=== PATIENT | male | born 1960 | race Caucasian/White ===

== ENCOUNTER → 2022-09-22 08:15 | Outpatient (BNVA) | payer OTHER, SELFPAY | PROVIDERS: Visit Provider Nurse Practitioner Family | DX: R50.9 Fever, unspecified (principal); R39.9 Unspecified symptoms and signs involving the genitourinary system | CPT/HCPCS: 81000; 87077; 87086; 87184 ==

== ENCOUNTER → 2022-10-19 08:27 | Outpatient (BNVA) | payer OTHER, SELFPAY | PROVIDERS: PCP Family Medicine; Visit Provider Family Medicine | DX: C61 Malignant neoplasm of prostate (principal) | CPT/HCPCS: 80053; 80061; 84439; 84443; 85025 ==

== ENCOUNTER → 2022-11-04 11:19 | Outpatient (BNVA) | payer OTHER, SELFPAY | PROVIDERS: PCP Family Medicine; Visit Provider Urology | DX: C61 Malignant neoplasm of prostate (principal) | CPT/HCPCS: 84153 ==

== ENCOUNTER → 2023-05-22 07:12 | Outpatient (BNVA) | payer OTHER, SELFPAY | PROVIDERS: PCP Family Medicine; Visit Provider Podiatrist Foot & Ankle Surgery | DX: M20.21 Hallux rigidus, right foot | CPT/HCPCS: 73630; 99203 ==

== ENCOUNTER → 2023-08-18 08:28 | Outpatient (BNVA) | payer OTHER, SELFPAY | PROVIDERS: Referring Provider Student in an Organized Health Care Education/Training Program; Visit Provider Student in an Organized Health Care Education/Training Program | DX: M65.341 Trigger finger, right ring finger (principal); M79.641 Pain in right hand | CPT/HCPCS: 20600; 73130; 99204; J3301; J3490 ==

== ENCOUNTER → 2023-08-22 15:19 | Outpatient (BNVA) | payer OTHER, SELFPAY | PROVIDERS: Visit Provider Podiatrist Foot & Ankle Surgery | DX: M20.21 Hallux rigidus, right foot (principal) | CPT/HCPCS: 99213 ==

== ENCOUNTER → 2024-03-04 08:04 | Outpatient (BNVA) | payer OTHER, SELFPAY | PROVIDERS: PCP Family Medicine; Visit Provider Family Medicine | DX: C61 Malignant neoplasm of prostate (principal) | CPT/HCPCS: 84153 ==

== ENCOUNTER → 2024-04-15 08:17 | Outpatient (BNVA) | payer MEDICARE, SELFPAY | PROVIDERS: PCP Family Medicine; Visit Provider Podiatrist Foot & Ankle Surgery | DX: M20.21 Hallux rigidus, right foot (principal); Z01.818 Encounter for other preprocedural examination | CPT/HCPCS: 99213 ==

== ENCOUNTER → 2024-06-05 10:09 | Outpatient (BNVA) | payer MEDICARE, SELFPAY | PROVIDERS: PCP Family Medicine; Visit Provider Student in an Organized Health Care Education/Training Program | DX: M65.341 Trigger finger, right ring finger (principal) | CPT/HCPCS: 99214 ==

== ENCOUNTER → 2024-06-12 14:48 | Outpatient (BNVA) | payer MEDICARE, SELFPAY | PROVIDERS: PCP Family Medicine; Visit Provider Nurse Practitioner Family | DX: L23.7 Allergic contact dermatitis due to plants, except food (principal); L57.8 Other skin changes due to chronic exposure to nonionizing radiation; D18.01 Hemangioma of skin and subcutaneous tissue; Z08 Encounter for follow-up examination after completed treatment for malignant neoplasm; Z85.828 Personal history of other malignant neoplasm of skin | CPT/HCPCS: 99213 ==

== ENCOUNTER 2024-07-05 05:52 | Day surgery (SDC) | payer MEDICARE, SELFPAY ==
[2024-07-05] VITALS (11 sets, daily range): BP systolic 109–131; BP diastolic 67–78; PULSE 48–60; RESP 15–18; TEMP 36.4; O2SAT 97–100; BMI 22.1
--- NOTE | 2024-07-05 06:50 | W.PM.OPSUD ---
Surgery/Procedure H&P Update DATE OF PROCEDURE: July 05, 2024 DATE H&P PERFORMED: 06/05/24 H&P UPDATE INFORMATION: I have reviewed H&P completed within last 30 days, I have examined patient prior to procedure and No changes to prior documentation PREOP DIAGNOSIS: Right ring finger trigger PRIMARY INDICATION FOR PROCEDURE: Right ring finger trigger PLANNED PROCEDURE: Operation Date: 07/05/24 07:00 Proposed Procedures p Right ring finger Trigger Finger Release(Right) - Olivier Gould DO
[2024-07-05] MEDS: ketorolac 30 mg/mL INJ IVP (06:51)
[2024-07-05] MEDS: acetaminophen 1,000 MG/100 ML PIGGYBACK 400 MG IV (06:51)
[2024-07-05] MEDS: sodium chloride 0.9% 1,000 ML 30 ML IV (06:52)
[2024-07-05] MEDS: ceFAZolin 2,000 mg SDV 2000 MG IVP (06:59)
[2024-07-05] MEDS: BUPivacaine 0.5% INJ 10 mL 5 ML INJECTION (06:59)
[2024-07-05] MEDS: ROPivacaine 0.5% SDV 30 mL 25 MG INJECTION (06:59)
--- NOTE | 2024-07-05 07:51 | P.BOP_ITS ---
Date of Procedure: 07/05/2024 Surgeon: Olivier Gould DO [employer] Secretary(s): None Procedure(s) performed: Right ring finger trigger release Right ring finger flexor tendons tenosynovectomies Findings of the procedure(s): Patient found to have right ring finger trigger that was significant as well as noticeable tenosynovitis throughout the ring finger we did this wide-awake under local only anesthesia he now can make a full fist with no triggering. He did have a little click which appeared to sound more within his knuckles or catching from the standpoint of his tendons on the gliding I then performed a tenosynovectomy which allowed for smoother range of motion and after we moved this multiple times the catching ceased. It did seem like some of this was some popping over on his knuckles on his middle finger which we felt and talked about while he was wide-awake in the OR at this point he was happy with a full fist he was able to make that he has not been able to make an eye while. At this point in time tourniquet was deflated hemostasis satisfactory this was thoroughly irrigated and bulky soft dressing applied. Patient Toller procedure well without issues or complications taken back to recovery in stable condition. Estimated blood loss: 3 mL Specimen(s) removed: None Post-operative diagnosis: Right ring finger trigger with tenosynovitis of the flexor tendons
--- NOTE | 2024-07-05 07:54 | PM.OP ---
Operative Report Date of procedure: July 05, 2024 Surgeon: Olivier Gould DO Procedure: Preoperative diagnosis: Right ring finger trigger Post-op diagnosis: Same, right ring finger flexor tendons with tenosynovitis Procedure done: Right ring finger trigger release Right ring finger flexor tendons tenosynovectomies Surgeon: Olivier Gould DO Estimated blood loss: 3cc Tourniquet time 14mins Complications: None Condition: stable Disposition: same day Brief History: Patient's been seen and worked up in the outpatient setting and findings consistent with preoperative diagnosis of right Ring finger?trigger.? He is failed conservative treatment.? Continues to have mechanical locking and catching.? Severe pain as well.? We talked about treatment options nonoperative versus operative intervention.? ?Patient understands the risk benefits complication alternatives of surgical nonsurgical treatment options.? Understanding his risks with surgery he elects proceed with surgical intervention.? Consent obtained in the preop area.? Here today to proceed with surgical intervention.? All questions answered. Procedure: Patient was seen and evaluated in the preoperative holding area.? Consent was reviewed and signed with patient.? Patient did not have a drive home and as a result he elected to proceed with local only anesthesia. Once ready for surgery was brought back to the operative suite.? Placed in supine position on the OR table all bony prominences well-padded patient properly secured to the bed.? Patient's right arm was then placed to the armboard.? A nonsterile tourniquet applied to the right upper arm.? Patient's right upper extremity was then prepped and draped in standard orthopedic fashion.? Final timeout performed.? Patient received appropriate preoperative antibiotics. Preoperative evaluation demonstrates patient had right ring finger mechanically triggered and had significant decreased range of motion and able to make a full fist with the right ring finger. Esmarch tourniquet was used exsanguinate the right upper extremity tourniquet insufflated to 250 mmHg. Under sterile aseptic technique local digital block was performed to the right Ring finger.? Once appropriately anesthetized a standard oblique/horizontal incision was made centering over the A1 desmond following patient's flexor crease.? Sharp scalpel incision was made only through skin and then switched to Littler dissection scissors and spread longitudinally directly over the flexor tendon sheath.? I then mobilized both radially and ulnarly and Kasdan retractors were used and placed by my undertaker assistant to protect neurovascular bundle.? Next I visualized the A1 desmond and this was incised with a scalpel.? I then switched to dissection scissors and?released the A1 desmond both proximally as well as distally to its entirety.? The entirety of the A1 desmond was released up to the A2 desmond. A2 desmond was left intact. Significant tendon sheath fluid was noted consistent with inflammation.? Mild fraying of the flexor tendons noted but no tear.? At this point I utilized a rag nail and pulled the tendons FDS and FDP out of the incision and no?triggering was noted.? I then had the patient and patient was able to actively flex and extend with no?triggering. Patient did have a subtle click with making a fist this sounded more as well as patient agrees as felt like his knuckle was popping over the middle finger. There was no true triggering of the right ring finger. At this point in time I went back in and evaluated the flexor tendons. He did have significant tenosynovium throughout the FDS and FDP. I felt as though this could potentially be causing a little bit of the inhibition of complete smooth gliding and as a result utilized a clipper dissection scissor and excised all of the tenosynovium that was red and inflame o the tendons and help to help with this gliding smoother. At this point in time once this was completed I then had patient make a fist there was no triggering of the right ring finger and he was satisfied that he was able to make a full fist which he states he had been able to do a long time. Once again there was subtle triggering but after the second time and this seemed to cease which patient agreed. At this point in time this completed our procedure. At this point thorough irrigation was performed.? Tourniquet deflated hemostasis satisfactory with bipolar.? I then subsequently closed the incision with interrupted nylon suture.? Xeroform 4 x 4's, Kerlix and an Ravinder wrap was applied for a bulky soft dressing.? Patient was then subsequently take to recovery in stable condition tolerated procedure without issues. Disposition: Patient taken back in stable condition recovering well.? Patient will receive appropriate discharge instruction as well as pain medication postoperatively.? Patient to follow-up with me in the office in 2 weeks for repeat evaluation and incision check.? Patient understands that any questions or concerns and contact the office.? All questions answered.
--- NOTE | 2024-07-05 08:23 | SUR.OPER ---
procedure without anesthesia
== END 2024-07-05 08:15 | disposition home or self-care (01) ==
PROVIDERS: PCP Family Medicine; Visit Provider Student in an Organized Health Care Education/Training Program
PROC: (CPT 26055; principal; 2024-07-05 07:00)
DX: M65.341 Trigger finger, right ring finger (principal); M65.941 Unspecified synovitis and tenosynovitis, right hand
CPT/HCPCS: 26055; J0131; J0690; J1885; J2795; J3490; J7030

== ENCOUNTER → 2024-07-17 09:21 | Outpatient (BNVA) | payer MEDICARE, SELFPAY | PROVIDERS: PCP Family Medicine; Visit Provider Physician Assistant | DX: Z98.890 Other specified postprocedural states (principal) | CPT/HCPCS: 99024 ==

== ENCOUNTER 2024-07-24 06:51 | Outpatient (RCR) | payer MEDICARE, SELFPAY | END 2024-07-31 23:59 | disposition home or self-care (01) | LOC: SOT 06:51 | PROVIDERS: PCP Family Medicine; Visit Provider Physician Assistant | DX: M65.341 Trigger finger, right ring finger (principal) | CPT/HCPCS: 97110; 97165 ==

== ENCOUNTER → 2024-09-09 07:13 | Outpatient (BNVA) | payer MEDICARE, SELFPAY | PROVIDERS: PCP Family Medicine; Visit Provider Family Medicine | DX: C61 Malignant neoplasm of prostate (principal) | CPT/HCPCS: 84153 ==

== ENCOUNTER → 2024-12-11 12:15 | Outpatient (BNVA) | payer MEDICARE, SELFPAY | PROVIDERS: PCP Family Medicine; Visit Provider Family Medicine | DX: Z13.6 Encounter for screening for cardiovascular disorders (principal); Z13.1 Encounter for screening for diabetes mellitus; R63.4 Abnormal weight loss | CPT/HCPCS: 80053; 80061; 84443; 85025 ==

== ENCOUNTER → 2025-02-10 08:20 | Outpatient (BNVA) | payer MEDICARE, SELFPAY | PROVIDERS: PCP Family Medicine; Visit Provider Nurse Practitioner Family | DX: L21.8 Other seborrheic dermatitis (principal); L57.8 Other skin changes due to chronic exposure to nonionizing radiation; D18.01 Hemangioma of skin and subcutaneous tissue; Z08 Encounter for follow-up examination after completed treatment for malignant neoplasm; Z85.828 Personal history of other malignant neoplasm of skin; L57.0 Actinic keratosis | CPT/HCPCS: 17000; 99214 ==